=== PATIENT | female | born 1935 | race Caucasian/White ===

== ENCOUNTER 2021-09-26 08:26 | Day surgery (SDC) | payer MEDICARE ==
[2021-09-26] MEDS ORDERED: Propofol 200 MG/20 ML SDV ONE (09:46)
[2021-09-26] MEDS ORDERED: fentaNYL 100 MCG/2 ML SDV ONE (09:46)
[2021-09-26] MEDS ORDERED: Sodium Chloride 0.9% 1,000 ML IV SCH (10:15)
[2021-09-26 11:22] VITALS: BP 148/80; PULSE 62
--- NOTE | 2021-09-27 07:49 | OR ---
DATE OF PROCEDURE: 09/26/2021 SURGEON: Florentino Griffith MD PROCEDURE: Colonoscopy. FINDINGS: Ascending colon polyp, approximately 5 mm, completely removed using cold biopsy forceps. COMPLICATIONS: None. PROJECT ARCHITECT: None. ANESTHESIA: MAC. PREOPERATIVE DIAGNOSIS: Positive Cologuard test. POSTOPERATIVE DIAGNOSIS: Positive Cologuard test. RISKS: Risks, benefits, alternatives, and limitations including, but not limited to infection, bleeding, perforation, false positives and false negatives were explained to the patient who wished to proceed. PROCEDURE IN DETAIL: The patient was placed in left lateral decubitus position. Digital rectal exam was performed without abnormality. Scope was introduced and advanced atraumatically to the ileocecal valve. A photo was taken of this. In the ascending colon, the aforementioned polyp was identified and completely removed using hot snare wire device. Scope was brought back to the remainder of the colon for greater than 10 minutes. No other abnormalities were noted. No abnormalities on retroflexion. Prep was acceptable, approximately 90% of the luminal surface could be seen. Some solid and liquid stool remaining, possibly precluding polyps more than 5 mm. The patient tolerated the procedure well. Florentino Griffith MD /[id number]
== END 2021-09-26 11:37 | disposition home or self-care (01) ==
LOC: JP.SDS 08:26
PROVIDERS: ATTEND Surgery
DX: K63.5 Polyp of colon (principal); J44.9 Chronic obstructive pulmonary disease, unspecified; N18.30 Chronic kidney disease, stage 3 unspecified; Z88.8 Allergy status to other drugs, medicaments and biological substances
CPT/HCPCS: 45385; J2704; J3010; J7030; 88305